=== PATIENT | female | born 1955 | race Caucasian/White ===

== ENCOUNTER 2024-11-15 13:33 | Emergency (ER) | payer MEDICARE, MEDICAID ==
[~2024-11-15] VITALS: Ht 152.4 cm; Wt 50.0 kg
[2024-11-15 13:50] VITALS: TEMP 98.6
[2024-11-15] MEDS ORDERED: [UNRECOGNIZED DRUG - CODE] IM (13:59)
[2024-11-15] MEDS ORDERED: DIVA-112 PO (13:59)
[2024-11-15] MEDS ORDERED: LEVO137T2 PO (13:59)
[2024-11-15] MEDS ORDERED: ATOR20TA65 PO (13:59)
[2024-11-15] MEDS ORDERED: BENZ2TAB84 PO (13:59)
[2024-11-15] MEDS ORDERED: PROP10TA72 PO (13:59)
[2024-11-15] MEDS ORDERED: RISP3TAB35 PO (13:59)
[2024-11-15] MEDS ORDERED: LORA0.5T20 PO (13:59)
[2024-11-15] MEDS ORDERED: LITH300T PO (13:59)
[2024-11-15] MEDS: LORazepam 0.5 MG TABLET PO ONE (15:01)
[2024-11-15 15:07] LABS: BASOPHILS % (AUTO) 0.5 % (0.0-2.0); EOSINOPHILS % (AUTO) 0.7 % (1.0-6.0); HEMATOCRIT 28.8 % (36-46); HEMOGLOBIN 9.6 g/dL (12.0-16.0); LYMPHOCYTES # (AUTO) 1.7 K/uL (1.0-4.8); LYMPHOCYTES % (AUTO) 29.4 % (22.0-44.0); MEAN CORPUSCULAR HEMOGLOBIN 32.1 pg (26.0-34.0); MEAN CORPUSCULAR HGB CONC 33.4 G/dL (31.0-37.0); MEAN CORPUSCULAR VOLUME 96 fL (80-100); MONOCYTES # (AUTO) 0.7 K/uL (0.1-1.0); MONOCYTES % (AUTO) 12.9 % (2.0-9.0); NEUTROPHILS # (AUTO) 3.2 K/uL (1.8-7.7); NEUTROPHILS % (AUTO) 56.5 % (40.0-70.0); PLATELET COUNT (AUTO) 141 K/uL (150-450); RED CELL DISTRIBUTION WIDTH 13.2 % (11.5-14.5); WHITE BLOOD COUNT (AUTO) 5.6 K/uL (4.5-11.0)
[2024-11-15 15:15] LABS: ANION GAP 4 mmol/L (8-16); CALCIUM, TOTAL 9.2 mg/dL (8.8-10.5); CARBON DIOXIDE 32 mmol/L (22-29); CHLORIDE 105 mmol/L (98-107); CREATININE 3.47 mg/dL (0.60-1.30); GLOMERULAR FILTR. RATE CALC 13 mL/min (>60); GLUCOSE,RANDOM 91 mg/dL (70-110); POTASSIUM 4.7 mmol/L (3.5-5.1); SODIUM SERUM 141 mmol/L (136-145); UREA NITROGEN, BLOOD 28 mg/dL (7-18)
[2024-11-15 15:22] LABS: TROPONIN I-HIGH SENSITIVITY 6 ng/L (<51)
[2024-11-15 15:24] LABS: B-TYPE NATRIURETIC PEPTIDE 93 pg/mL (0-100)
[2024-11-15 15:26] LABS: ALCOHOL, BLOOD (SERUM) < 3 mg/dL (0-10)
[2024-11-15 16:15] VITALS: BP 120/70; PULSE 80; RESP 16; O2SAT 98
== END 2024-11-15 18:23 | disposition home or self-care (01) ==
LOC: EMS 13:35
DX: R06.02 Shortness of breath (principal); F41.9 Anxiety disorder, unspecified; Z79.899 Other long term (current) drug therapy
CPT/HCPCS: 99285; 71046; 80048; 83880; 84484; 85025; 36415; 93005; G0480

== ENCOUNTER 2024-12-24 16:53 | Emergency (ER) | payer MEDICARE, MEDICAID ==
[~2024-12-24] VITALS: Ht 153.7 cm; Wt 61.4 kg
[~2024-12-24 16:53] MED LIST: ATOR20TA65 PO; BENZ2TAB84 PO; DIVA-112 PO; LEVO137T2 PO; LITH300T PO; LORA0.5T20 PO; PROP10TA72 PO; RISP3TAB35 PO; [UNRECOGNIZED DRUG - CODE] IM
[2024-12-24 18:07] VITALS: TEMP 98.1
[2024-12-24 19:25] VITALS: BP 110/78; PULSE 92; RESP 16; O2SAT 98
== END 2024-12-24 19:37 | disposition home or self-care (01) ==
LOC: EMS 16:53
DX: F41.9 Anxiety disorder, unspecified (principal); N18.6 End stage renal disease; F17.210 Nicotine dependence, cigarettes, uncomplicated; Z99.2 Dependence on renal dialysis; Z79.899 Other long term (current) drug therapy
CPT/HCPCS: 99283; Z7502